=== PATIENT | female | born 1955 | race American Indian/Alaskan Native ===

== ENCOUNTER 2020-08-15 18:07 | Emergency (ER) | payer MEDICARE ==
[2020-08-15] MEDS ORDERED: NALOXONE 0.4 MG/1 ML INJ ONE (18:26)
[2020-08-15 19:31] VITALS: BP 143/36
--- NOTE | 2020-08-15 19:34 | Emergency Department Report ---
ED General Adult HPI - General Chief complaint: Cardiac Arrest/CPR Stated complaint: UNRESPONSIVE Time Seen by Provider: 08/15/20 18:35 Source: EMS Mode of arrival: Stretcher Limitations: Other - History of Present Illness Initial comments: Patient presents to the emergency department via EMS being bagged with a chief complaint of unresponsiveness. Per EMS the call was made for patient that was unresponsive upon their arrival to the patient's home she was being held by her daughter and was not responsive. While patient was being assessed she became responsive and start screaming about back pain. Paramedics stated that the patient was placed in ambulance and patient was coherent until pulling into the ramp when the patient became unresponsive and having difficulty breathing. -: Sudden Improves with: none Worsens with: none Treatments Prior to Arrival: none ED Review of Systems ROS: Stated complaint: UNRESPONSIVE Other details as noted in HPI Comment: Unobtainable due to pts medical conditions ED Past Medical Hx - Past Medical History Hx Hypertension: No Hx CVA: Yes (2 WEEKS AGO) ED Physical Exam - General Limitations: Other General appearance: obtunded - Head Head exam: Present: atraumatic, normocephalic - Eye Eye exam: Absent: scleral icterus - ENT ENT exam: Present: mucous membranes moist - Neck Neck exam: Present: normal inspection. Absent: thyromegaly - Respiratory Respiratory exam: Present: other (Bilateral breath sounds with bagging) - Cardiovascular Cardiovascular Exam: Present: bradycardia - GI/Abdominal GI/Abdominal exam: Present: soft. Absent: distended - Extremities Exam Extremities exam: Present: other (Mild bilateral lower extremity edema) - Neurological Exam Neurological exam: Present: other (Not able to assess due to the patient's condition;) - Psychiatric Psychiatric exam: Present: other (Not able to assess due to the patient's condition) - Skin Skin exam: Present: warm, dry, intact, normal color. Absent: rash ED Course Vital Signs 08/15/20 08/15/20 18:10 18:20 Pulse Rate 45 L 0 L Respiratory 8 L 17 Rate Blood Pressure 143/36 [Right] O2 Sat by Pulse 98 98 Oximetry - Intubation Laryngoscope: fiberoptic video scope Size: 3 ET Tube Size: 7.5 Tube Secured Depth (cm): 22 Tube Secured Location: teeth Tube Placement Confirmation: visualized tube passing t, equal breath sounds bilat, no breath sounds over epi Patient Tolerated Procedure: well Intubation Complications: none ED Medical Decision Making - Medical Decision Making On arrival the patient is unresponsive and is being bagged via BVM IV access was obtained and the patient was given Narcan and dextrose to no avail Patient was bradycardia and they were also given atropine Bagging of the patient was continued and upon reevaluation it was discovered that the patient was pulseless ACLS protocol was followed please see code sheet Doing the time of resuscitation the patient was intubated there is significant amount of vomitus in the oral airway that had the odor of alcohol Time of is 183 Discussed the patient's passing with her daughter Daughter states the patient had a stroke 2 weeks ago in [place] when she moved here to help her with her medical care and to keep an eye on her. Critical care attestation.: If time is entered above; I have spent that time in minutes in the direct care of this critically ill patient, excluding procedure time. ED Disposition Clinical Impression: Cardiac arrest Disposition: Z-[id number] HOSPICE- MED FAC Is pt being admited?: No Does the pt Need Aspirin: No
[2020-08-15] MEDS ORDERED: EPINEPHrine 1 MG/10 ML SYRINGE ONE ×2 (21:45)
[2020-08-15] MEDS ORDERED: CALCIUM CHLORIDE 1,000 MG/10 ML SYRINGE IV ONE (21:45)
[2020-08-15] MEDS ORDERED: D5W 50 ML IVPB IV ONE (21:45)
[2020-08-15] MEDS ORDERED: SODIUM BICARB 8.4% 50 MEQ/50 ML SYRINGE IV ONE (21:45)
[2020-08-15] MEDS ORDERED: NALOXONE 2 MG/2 ML INJ ONE ×2 (21:45)
== END 2020-08-15 22:05 ==
LOC: ED 18:07
DX: I46.9 Cardiac arrest, cause unspecified (principal); Z86.73 Personal history of transient ischemic attack (TIA), and cerebral infarction without residual deficits
CPT/HCPCS: 31500; 92950; 99285; J0171; J2310